=== PATIENT | male | born 1955 | race Asian ===

== ENCOUNTER 2023-07-18 10:50 | Outpatient (AMB) | payer OTHER, SELFPAY ==
--- NOTE | 2023-07-18 11:07 | A.OFFVIS_ITS ---
Intake Vital Signs 07/18/23 11:09 Height 5 ft 4 in Weight 166 lb BMI 28.5 BP 134/68 Blood Pressure Location Lt brachial Position Sitting Pulse 58 Pulse Source Pulse Oximeter Pulse Oximetry (%) 98 Oxygen Delivery Method Room Air Intake Visit Reasons: Cough Financial Quantitative Analyst Required: No Skoog Patching Machine Operator: Skoog Patching Machine Operator offered & declined Accompanied by: Self / Same As Patient Allergies benzonatate Adverse Reaction (Verified 07/18/23 11:15) chest tightness Medication List - Last Reconciled 07/18/23 by Yola Zepeda LPN albuterol sulfate 90 mcg/actuation 2 puffs inhalation Q6-8H PRN amlodipine 10 mg PO DAILY aspirin 81 mg PO DAILY atorvastatin 80 mg PO BEDTIME fluticasone propionate 100 mcg/actuation 1 inh inhalation BID isosorbide mononitrate ER 30 mg PO DAILY metoprolol tartrate 50 mg PO BID pantoprazole 20 mg PO DAILY tamsulosin 0.4 mg PO DAILY HPI Cough HPI Details Robe is a pleasant 67 year old male, never smoker, with underlying CAD s/p stent 2016. He was referred by PCP for pulmonary evaluation for persistent cough. He reports cough has been present for the past 7-8 weeks. Initially he was diagnosed with URI, treated with prednisone and tessalon perles. He reports respiratory panel negative, EKG unremarkable and CXR revealed low volume lungs. He reports cough is now dry with associated chest discomfort and dyspnea on exertion. He denies any wheezing. He was started on ICS inhaler with some improvement however reports persistent cough. He denies any prior history of asthma. He denies any pertinent family history. He denies any seasonal allergies. He denies any occupational exposures. He is under the care of cardiology for intermittent chest discomfort, ED evaluation reportedly unremarkable. Today denies any chest pain. [facility] Social History (Updated 07/18/23 @ 11:15 by Yola Zepeda LPN) Patient Tobacco Use Status: Never used Tobacco Smoked in Last 30 Days: No Review of Systems Const Denies chills, Denies excessive sweating, Denies fever(s), Denies headache(s) and Denies night sweats Eyes Denies dry eyes, Denies irritation and Denies itchy eyes ENT Reports Normal hearing present, Denies headache(s), Denies nasal congestion, Denies nasal discharge, Denies post nasal drip and Denies sore throat Card Denies claudication, Denies leg edema, Denies orthopnea and Denies paroxysmal nocturnal dyspnea Resp Denies chest congestion, Denies excessive phlegm production, Denies pain on inspiration, Denies pain with cough, Denies stridor and Denies wheezing Musc Denies myalgias Neuro Reports Normal hearing present and Denies headache(s) Endo Denies excessive sweating Nicanor/Lymph Denies lymphadenopathy Aller/Immun Denies itchy eyes, Denies seasonal rhinorrhea and Denies wheezing Physical Exam Vital Signs: Last Vital Signs Pulse 58 07/18/23 11:09 BP 134/68 07/18/23 11:09 Pulse Ox 98 07/18/23 11:09 Oxygen Delivery Method Room Air 07/18/23 11:09 BMI result Body Mass Index 28.5 Const General: cooperative, healthy appearing, comfortable, no acute distress, well developed and alert Orientation/consciousness: patient oriented x3 Limitations: no limitations HEENT Head: Yes normal to inspection, Yes normocephalic and Yes atraumatic Ears: hearing grossly normal bilaterally and external ears normal Eyes General: appearance normal, both eyes and all related structures Eyelids: Yes eyelids normal Sclerae: sclerae normal EOM: EOMs intact bilaterally Neck Neck: Yes normal visual inspection and Yes no lymphadenopathy Lymphatic: no lymphadenopathy noted Chest Chest palpation & inspection: normal inspection of the chest Resp Effort & Inspection: normal respiratory effort, able to speak in complete sentences, no audible wheezes, no cough, no stridor, not tachypneic, no tripod positioning and no use of accessory muscles Auscultation: clear to auscultation bilaterally Cardio Jugular venous distension: no JVD Rate: regular rate Rhythm: regular rhythm Skin Other: warm, dry General skin exam: no rashes or lesions noted Neuro General: patient oriented x3 Cranial nerves: Yes Normal hearing present Cognition (Neuro): normal cognition Gait exam (Neuro): Normal gait present Extrem General: Yes normal to inspection, Yes capillary refill normal, Yes no clubbing, cyanosis or edema and Yes no pedal edema Psych Appearance: grossly normal and well kempt Speech and movement: Normal speech and movement present and Clear speech present Affect: normal affect Attitude: cooperative Thought process: Normal thought process present Thought content: Normal thought content present Insight: Good insight present (Psych) Judgement: Good judgement present (Psych) Assessment & Plan Assessment & Plan (1) Asthma: Code(s): J45.909 - Unspecified asthma, uncomplicated (2) Cough: Code(s): R05.9 - Cough, unspecified (3) Abnormal chest xray: Code(s): R93.89 - Abnormal findings on diagnostic imaging of other specified body structures Plan Robe's symptoms are likely related to underlying reactive airway disease/asthma. Will send for PFT to evaluate and switch to Breo, as patient with suboptimal response to Atrovent. Patient did have an abnormal CXR revealing low lung volumes, with persistent subacute cough, will send for chest CT to evaluate for parenchymal disease contributing to low volumes. Patient did note that he is leaving in 2 weeks for a 3 month trip to [facility] and will schedule his testing after he returns. All questions were answered and patient is in agreement of plan. Will follow-up to review results and response to Breo. Orders: Orders PFT pulmonary function test 3 Months J45.909 - Unspecified asthma, uncomplicated CT chest wo IV con 3 Months R05.9 - Cough, unspecified, R93.89 - Abnormal findings on diagnostic imaging of other specified body structures Medications: New fluticasone furoate-vilanterol 100-25 mcg/dose (Breo Ellipta) 1 inh inhalation DAILY 60 ea 6RF Coding Level of Care Code New Pt Level 4 (11355) Diagnoses Asthma J45.909 Cough R05.9 Abnormal chest xray R93.89
[2023-07-18 11:09] VITALS: BP 134/68; PULSE 58; O2SAT 98; BMI 28.5
== END 2023-07-18 11:50 | disposition home or self-care (01) ==
PROVIDERS: PCP Internal Medicine; Visit Provider Nurse Practitioner Family
DX: J45.909 Unspecified asthma, uncomplicated (principal); R05.9 Cough, unspecified; R93.89 Abnormal findings on diagnostic imaging of other specified body structures
CPT/HCPCS: 99204

== ENCOUNTER → 2023-07-18 10:50 | Outpatient (BNVA) | payer OTHER, SELFPAY | PROVIDERS: PCP Internal Medicine; Visit Provider Nurse Practitioner Family ==

== ENCOUNTER 2024-05-08 09:22 | Outpatient (REF) | payer OTHER, SELFPAY ==
[2024-05-08 10:46] LABS: Cholesterol 142 mg/dL (<200); HDL Cholesterol 50 mg/dL (>40); LDL Cholesterol Calculated 77 mg/dL (<100); Triglycerides 78 mg/dL (<150)
[2024-05-08 10:59] LABS: Alanine Aminotransferase 28 U/L (0-40); Albumin Level 4.1 g/dL (3.5-5.0); Alkaline Phosphatase 69 U/L (39-117); Anion Gap 9 (12-20); Aspartate Amino Transferase 32 U/L (5-37); Bilirubin Total 0.7 mg/dL (0.0-1.0); Blood Urea Nitrogen 19 mg/dL (9-16); Calcium 9.3 mg/dL (8.4-10.2); Carbon Dioxide 26 mmol/L (22-29); Chloride 108 mmol/L (96-108); Estimated Glomerular Filt Rate > 60; Glucose Random 99 mg/dL (60-115); Potassium 4.2 mmol/L (3.3-5.1); Sodium 139 mmol/L (135-145); Total Protein 7.7 g/dL (6.5-8.0)
[2024-05-08 11:05] LABS: Microalbumin Urine < 5.0 mg/L
== END 2024-05-08 09:23 | disposition home or self-care (01) ==
LOC: HO.LAB 09:22
PROVIDERS: Visit Provider Hospitalist
DX: I25.10 Atherosclerotic heart disease of native coronary artery without angina pectoris (principal); I10 Essential (primary) hypertension
CPT/HCPCS: 36415; 80053; 80061; 82043; 82570